=== PATIENT | male | born 1990 | race African-American/Black ===

== ENCOUNTER 2017-06-26 02:11 | Emergency (ER) | payer MEDICAID, OTHER | END 2017-06-26 02:40 | disposition left against medical advice (07) | LOC: ER 02:11 | DX: Z53.21 Procedure and treatment not carried out due to patient leaving prior to being seen by health care provider (principal) ==

== ENCOUNTER 2017-06-30 22:04 | Emergency (ER) | payer OTHER ==
[~2017-06-30] VITALS: Ht 177.8 cm; Wt 73.0 kg
[2017-06-30 23:30] VITALS: BP 131/79
== END 2017-06-30 22:26 | disposition left against medical advice (07) ==
LOC: ER 22:04
DX: R51 Headache (principal); R10.9 Unspecified abdominal pain; Z53.21 Procedure and treatment not carried out due to patient leaving prior to being seen by health care provider

== ENCOUNTER 2017-07-14 23:22 | Emergency (ER) | payer OTHER | END 2017-07-15 01:39 | disposition left against medical advice (07) | LOC: ER 23:22 | DX: Z00.8 Encounter for other general examination (principal); Z53.21 Procedure and treatment not carried out due to patient leaving prior to being seen by health care provider ==

== ENCOUNTER 2020-08-28 06:04 | Emergency (ER) | payer OTHER ==
[~2020-08-28] VITALS: Ht 177.8 cm; Wt 73.0 kg
[2020-08-28 06:46] VITALS: BP 132/96
== END 2020-08-28 07:35 | disposition left against medical advice (07) ==
LOC: ER 06:04
DX: Z53.21 Procedure and treatment not carried out due to patient leaving prior to being seen by health care provider (principal)

== ENCOUNTER 2024-06-27 13:11 | Emergency (ER) | payer OTHER ==
[~2024-06-27] VITALS: Ht 177.8 cm; Wt 83.0 kg
[2024-06-27 13:15] VITALS: O2SAT 99
[2024-06-27 13:37] VITALS: BP 127/78; PULSE 89; RESP 18; TEMP 37.1; O2SAT 100
[2024-06-27 17:37] LABS: INFLUENZA TYPE A Presumptive Negative (Pres. Neg.)
[2024-06-27 17:38] LABS: INFLUENZA TYPE B Presumptive Negative (Pres. Neg.)
[2024-06-27 17:39] LABS: RESPIRATORY SYNCYTIAL VIRUS Not Detected (Not Detectd)
== END 2024-06-27 15:24 | disposition home or self-care (01) ==
LOC: ER 13:11
DX: J06.9 Acute upper respiratory infection, unspecified (principal); B97.89 Other viral agents as the cause of diseases classified elsewhere; F12.90 Cannabis use, unspecified, uncomplicated
CPT/HCPCS: 87420; 87804; 99283